=== PATIENT | female | born 1935 | race Caucasian/White ===

== ENCOUNTER 2020-05-24 04:07 | Inpatient (IN) | payer OTHER ==
[~2020-05-24] VITALS: Ht 170.2 cm; Wt 58.1 kg
[2020-05-24 04:13] VITALS: BP 132/58
[2020-05-24 04:35] LABS: ABSOLUTE NEUTROPHILS 3.5 thou/uL (1.4-8.2); BASOPHILS 0.3 % (0.0-2.0); EOSINOPHILS 1.8 % (0.0-3.0); HEMATOCRIT 26.5 % (37.0-47.0); HEMOGLOBIN 8.9 gm/dL (12.0-15.0); LYMPHOCYTES 24.2 % (24.0-44.0); MCH 32.4 pg (26.0-34.0); MCHC 33.4 g/dL (28.0-37.0); MCV 97.1 fL (80.0-100.0); MONOCYTES 9.7 % (1.0-8.0); PLATELET COUNT 126 thou/uL (150-400); RBC 2.73 mil/uL (4.20-5.00); RDW 14.8 % (10.5-14.5); WBC 5.4 thou/uL (4.0-11.0)
[2020-05-24 04:41] LABS: CALCIUM 8.8 mg/dL (8.5-10.1); CREATININE 1.7 mg/dL (0.6-1.0)
[2020-05-24 04:47] LABS: ALBUMIN 2.7 g/dL (3.4-5.0); TOTAL BILIRUBIN 0.6 mg/dL (0.2-1.0); TOTAL PROTEIN 5.4 g/dL (6.4-8.2)
[2020-05-24 04:49] LABS: URINE BILIRUBIN NEGATIVE (Negative); URINE BLOOD NEGATIVE (Negative); URINE CLARITY CLEAR; URINE COLOR YELLOW; URINE GLUCOSE-RANDOM* NEGATIVE (Negative); URINE KETONES NEGATIVE (Negative); URINE LEUKOCYTES-REFLEX NEGATIVE (Negative); URINE NITRITE-REFLEX NEGATIVE (Negative); URINE PROTEIN (DIPSTICK) NEGATIVE (Negative); URINE SPECIFIC GRAVITY 1.015 (1.005-1.035); URINE UROBILINOGEN 0.2 E.U./dl (0.2-1.0)
[2020-05-24 06:13] LABS: LARGE PLATELETS OCCASIONAL
[2020-05-24] MEDS ORDERED: COMBIGAN EYE DR10 ML OPHTHALMIC (06:34)
[2020-05-24] MEDS ORDERED: LATANOPROST 0.2.5 ML OPHTHALMIC (06:35)
[2020-05-24] MEDS ORDERED: TRANSDERM-SCOP1 EACH TOP (06:35)
[2020-05-24 16:15] VITALS: BP 127/54
[2020-05-24 18:35] VITALS: BP 125/57
[2020-05-24 21:56] VITALS: BP 134/63
[2020-05-25 04:31] LABS: HEMATOCRIT 28.2 % (37.0-47.0); HEMOGLOBIN 9.2 gm/dL (12.0-15.0); MCH 32.3 pg (26.0-34.0); MCHC 32.8 g/dL (28.0-37.0); MCV 98.3 fL (80.0-100.0); RBC 2.87 mil/uL (4.20-5.00); RDW 15.3 % (10.5-14.5); WBC 5.5 thou/uL (4.0-11.0)
[2020-05-25 04:53] LABS: CREATININE 1.2 mg/dL (0.6-1.0); MAGNESIUM 1.6 mg/dL (1.8-2.4); POTASSIUM 3.6 mmol/L (3.5-5.1)
[2020-05-25 05:53] VITALS: BP 135/70
[2020-05-25 07:27] VITALS: BP 137/57
[2020-05-25 22:04] VITALS: BP 141/85
[2020-05-26] MEDS ORDERED: OMEPRAZOLE 20 M20 M1 PO (05:49)
[2020-05-26] MEDS ORDERED: SIMVASTATIN40 MG PO (05:51)
[2020-05-26] MEDS ORDERED: BUSPIRONE HCL5 MG PO (05:54)
[2020-05-26] MEDS ORDERED: MELATONIN10 M1 PO (05:56)
[2020-05-26] MEDS ORDERED: FENOFIBRATE134 MG PO (06:06)
[2020-05-26] MEDS ORDERED: MULTIVITAMINS1 EACH (06:08)
[2020-05-26 07:36] VITALS: BP 149/58
--- NOTE | 2020-05-26 07:39 | EKG ---
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 05/26/20 0739 0424 0424 Tor Richardson MD, FACC /EPI
[2020-05-26 14:14] VITALS: BP 149/58
[2020-05-26] MEDS ORDERED: PEPCID20 MG PO (16:05)
[2020-05-26] MEDS ORDERED: ACETAMINOPHEN325 M1 PO (16:05)
[2020-05-26 17:47] VITALS: BP 121/61
== END 2020-05-26 18:20 | disposition home health service (06) | DRG 682 ==
LOC: ER 04:07 → 4W 05:42 → EROBS 05:42 → 4W 18:35 → EROBS 18:40 → 4W 19:02
PROVIDERS: Emergency Medicine; ADMIT Internal Medicine; ATTEND Internal Medicine
DX: N17.0 Acute kidney failure with tubular necrosis (principal); E43 Unspecified severe protein-calorie malnutrition; G93.41 Metabolic encephalopathy; F03.91 Unspecified dementia, unspecified severity, with behavioral disturbance; E86.0 Dehydration; N18.9 Chronic kidney disease, unspecified; E78.5 Hyperlipidemia, unspecified; D63.8 Anemia in other chronic diseases classified elsewhere; K21.9 Gastro-esophageal reflux disease without esophagitis; Z20.822 Contact with and (suspected) exposure to COVID-19; E16.2 Hypoglycemia, unspecified; Z88.0 Allergy status to penicillin; Z88.2 Allergy status to sulfonamides; Z79.899 Other long term (current) drug therapy
CPT/HCPCS: 10047

== ENCOUNTER 2020-07-22 07:06 | Emergency (ER) | payer OTHER ==
[~2020-07-22] VITALS: Ht 170.2 cm; Wt 61.2 kg
[~2020-07-22 07:06] MED LIST: ACETAMINOPHEN325 M1 PO; BUSPIRONE HCL5 MG PO; COMBIGAN EYE DR10 ML OPHTHALMIC; FENOFIBRATE134 MG PO; LATANOPROST 0.2.5 ML OPHTHALMIC; MELATONIN10 M1 PO; MULTIVITAMINS1 EACH; OMEPRAZOLE 20 M20 M1 PO; PEPCID20 MG PO; SIMVASTATIN40 MG PO; TRANSDERM-SCOP1 EACH TOP
[2020-07-22] MEDS ORDERED: FUROSEMIDE 20 M20 M1 PO (07:15)
[2020-07-22] MEDS ORDERED: POTASSIUM CHLO10 ME1 PO (07:16)
[2020-07-22 09:17] VITALS: BP 130/59
== END 2020-07-22 09:18 | disposition short-term general hospital (02) ==
LOC: ER 07:06
DX: S00.83XA Contusion of other part of head, initial encounter (principal); Z88.0 Allergy status to penicillin; Z88.2 Allergy status to sulfonamides; Z79.899 Other long term (current) drug therapy; W01.0XXA Fall on same level from slipping, tripping and stumbling without subsequent striking against object, initial encounter; Y93.89 Activity, other specified; Y92.89 Other specified places as the place of occurrence of the external cause; Y99.8 Other external cause status

== ENCOUNTER 2021-05-03 15:44 | Inpatient (IN) | payer OTHER ==
[~2021-05-03] VITALS: Ht 170.2 cm; Wt 63.5 kg
--- NOTE | ~2021-05-03 | EMS ---
[address] [address] EMS Patient Care Report Name: PAT VICENTE Room #: REG ASHKAN Bullock#: [id number] Admission: 05/03/21 Attend Phys: Discharge: Date of : 34 Report #: [id number] THIS REPORT FOR: //name// Report Transmitted: 05/03/2021 15:15 EMS Care Summary [place], [place]/[facility] Incident [id number] @ 05/03/2021 15:04 Incident Location [address] Patient PAT VICENTE Female, 85 Years 1935 Patient Address [address] [place] [address] Patient History Hypertension (HTN),Gastro-Esophageal Reflux Disease (GERD),Edema,Glaucoma, Patient Allergies Penicillin allergy,Sulfa, Patient Medications Hydroxyzine, Melatonin, Simvastatin, Furosemide, Omeprazole, Fenofibrate, Potassium, Chief Complaint mid back pain wrapping around to front Disposition Transported No Lights/[place] Dispatch Reason Chest Pain (Non-Traumatic) Transported To [facility] Narrative M36 dispatched on a chest pain. M36 arrived to long term to find staff directing PT to wrong hallway. PT found in room seated on edge of bed. PT [address] [address] EMS Patient Care Report Name: PAT VICENTE Room #: REG Ara#: [id number] Admission: 05/03/21 Attend Phys: Discharge: Date of : 34 Report #: [id number] stated mid back pain wrapping around to the front as chief complaint. PT stated additional complaints of dry unproductive cough and pain worse with deep breathes. NH stated PT had not eaten breakfast this morning. PT assisted to put on surgical mask. PT assisted to stand and pivot to stretcher. PT secured with seatbelts. PT stated "I need to get my booster." PT vitals monitored during transport. PT report given. PT advised of high volume status. PT assisted to stand and pivot to wheelchair in triage. PT care and belongings transferred to ER staff at [facility] without incident. M36 placed back in service. Initial Vitals @15:26P: 83,BP: 127/75,CO: 0,SpO2: 96, @15:23P: 84,R: 16,BP: 142/70,Pain: 7/10,GCS: 15,SpO2: 96,Revised Trauma: 12,MO Suspected: false @15:37P: 104,R: 18,Pain: 7/10,GCS: 15,SpO2: 96, Assessments @15:46MENTAL:Place Oriented,Event Oriented,Person Oriented,Time Oriented,SKIN:Pale,HEENT:LUNG SOUNDS:ABDOMEN:PELVIS//GI:EXTREMITIES:Left Leg: Edema,Right Leg: Edema,PULSE:Radial: 2+ Normal,NEURO: Impression Chest pain on breathing Procedures @15:16 ALS Assessment Response: UnchangedSucceeded Timeline 15:02,Call Received 15:02,Dispatch Notified 15:04,Dispatched 15:04,En Route 15:11,On Scene 15:14,At Patient 15:16,ALS Assessment,Response: UnchangedSucceeded, 15:23,BP: 142/70 M,PULSE: 84,RR: 16 R,SPO2: 96 Ox,ETCO2: ,BG: ,PAIN: 7,GCS: 15, 15:26,BP: 127/75 M,PULSE: 83,RR: R,SPO2: 96 Ox,ETCO2: ,BG: ,PAIN: ,GCS: , 15:35,Depart Scene 15:37,BP: / M,PULSE: 104,RR: 18 R,SPO2: 96 Ox,ETCO2: ,BG: ,PAIN: 7,GCS: 15, 15:38,At Destination 15:57,Call Closed Disclaimer v1.1 Copyright 2021 [employer] [address] [address] EMS Patient Care Report Name: PAT VICENTE Room #: REG [facility]#: [id number] Admission: 05/03/21 Attend Phys: Discharge: Date of : 34 Report #: [id number] This EMS Care Summary contains data elements from the applicable legal record (which may be displayed differently). It is designed to provide pertinent information for the following purposes: continuity of care, clinical quality, and state data reporting. The complete legal record is available to ED staff and administrators of the receiving hospital in [facility]'s Patient Tracker. All data is provided "as is."
[2021-05-03 15:44] VITALS: BP 140/59
[~2021-05-03 15:44] MED LIST changes: +FUROSEMIDE 20 M20 M1 PO; +POTASSIUM CHLO10 ME1 PO
[2021-05-03 17:02] LABS: HEMATOCRIT 27.2 % (37.0-47.0); MCH 30.1 pg (26.0-34.0); MCHC 33.1 g/dL (28.0-37.0); MCV 90.9 fL (80.0-100.0); PLATELET COUNT 454 thou/uL (150-400); RDW 13.9 % (10.5-14.5); WBC 25.5 thou/uL (4.0-11.0)
[2021-05-03 17:24] LABS: CALCIUM 8.7 mg/dL (8.5-10.1); CREATININE 2.1 mg/dL (0.6-1.0)
[2021-05-03 17:30] LABS: POTASSIUM 2.7 mmol/L (3.5-5.1)
[2021-05-03 17:34] LABS: ABSOLUTE NEUTROPHILS 23.5 thou/uL (1.4-8.2)
[2021-05-03 17:47] LABS: URINE BLOOD NEGATIVE (Negative); URINE CLARITY CLEAR; URINE COLOR YELLOW; URINE GLUCOSE-RANDOM* NEGATIVE (Negative); URINE KETONES TRACE (Negative); URINE NITRITE-REFLEX NEGATIVE (Negative); URINE PROTEIN (DIPSTICK) 2+ (Negative); URINE SPECIFIC GRAVITY >= 1.030 (1.005-1.035)
[2021-05-03 17:50] LABS: ICTOTEST (BILI CONFIRMATORY) Negative (Negative); URINE BILIRUBIN NEGATIVE (Negative); URINE LEUKOCYTES-REFLEX 1+ (Negative)
[2021-05-03 17:54] LABS: SQUAMOUS 0-3 Few /LPF (0-3); URINE RBC 1-2 Rare /HPF (NONE SEEN)
[2021-05-03 17:55] LABS: BACTERIA-REFLEX >30 Many /HPF (None Seen); CRYSTALS None Seen /LPF (None Seen); HYALINE CASTS 0-3 Few /LPF (None Seen)
[2021-05-04 05:21] VITALS: BP 151/50
[2021-05-04 06:05] LABS: HEMATOCRIT 23.9 % (37.0-47.0); HEMOGLOBIN 7.8 gm/dL (12.0-15.0); MCH 30.3 pg (26.0-34.0); MCHC 32.6 g/dL (28.0-37.0); RBC 2.57 mil/uL (4.20-5.00); RDW 14.1 % (10.5-14.5); WBC 21.7 thou/uL (4.0-11.0)
[2021-05-04 06:09] LABS: CALCIUM 7.7 mg/dL (8.5-10.1); CREATININE 1.8 mg/dL (0.6-1.0)
[2021-05-04 06:35] LABS: POTASSIUM 2.9 mmol/L (3.5-5.1)
--- NOTE | 2021-05-04 07:39 | EKG ---
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: DEWEY LERMA : 1935 Requested By: Don Foster Order Number: [id number] MD: Fernandez Lyle Measurements Intervals [place] Rate: 89 P: 23 VA: 135 QRS: -17 QRSD: 96 T: 161 QT: 361 QTc: 440 Interpretive Statements Sinus rhythm Atrial premature complex LVH with secondary repolarization abnormality Compared to ECG 05/24/2020 04:24:10 Atrial premature complex(es) now present Left ventricular hypertrophy now present Early repolarization now present ST (T wave) deviation no longer present Electronically Signed On 05-04-2021 7:39:44 FOXING CLOSER by Fernandez Lyle [email or web address] <ELECTRONICALLY SIGNED> By: Fernandez Lyle MD, FAC 05/04/21 0739 1616 1616 Fernandez Lyle MD, [facility] /EPI
[2021-05-04 08:22] VITALS: BP 144/58
[2021-05-04 09:11] VITALS: BP 144/58
[2021-05-04 09:30] VITALS: BP 124/66
[2021-05-04 15:40] LABS: ABSOLUTE RETIC COUNT 0.0312 10^6/uL; OBSERVED RETIC COUNT 1.17 % (0.6-2.6)
[2021-05-04 15:43] LABS: % SATURATION 18 % (20-39); IRON 26 ug/dL (50-170); TIBC 141 ug/dL (250-450)
[2021-05-04 16:00] VITALS: BP 132/50
--- NOTE | 2021-05-04 16:49 | NUR ---
CHART REVIEWED AND CASE DISCUSSED WITH CARE TEAM. CM MET WITH PT THIS DAY. CM ROLE INTRODUCED. PT REPORTS SHE LIVES IN [facility] BY HERSELF. SHE REPORTS HAVING HELP WITH MEALS AND DRESSING IF NEEDED. SHE REPORTS NOT HAVING A PCP. CM WILL CALL SON FOR FURTHER [employer] AND ADLS. AWAITING THERAPY RECOMMENDATIONS FOR DC. CM WILL CONTINUE TO FOLLOW.
--- NOTE | 2021-05-04 18:28 | NUR ---
Received pt to room 211 from ER approx. 0945. Pt is A&O x3, on RA, SR on the monitor. Pt has hx of dementia & slightly forgetful. Pt oriented to unit & room. Appropriate wristbands placed on pt & orders carried out. Stool collected for occult test per GI. Pt daughter at bedside & able to help w/ most of questions. Pt son (primary) & daughter share DPOA. High fall precautions in place. Frequent rounding in place.
[2021-05-04 20:15] VITALS: BP 147/56
[2021-05-05 02:33] LABS: HEMATOCRIT 24.8 % (37.0-47.0); HEMOGLOBIN 8.1 gm/dL (12.0-15.0); MCH 30.1 pg (26.0-34.0); MCHC 32.5 g/dL (28.0-37.0); MCV 92.6 fL (80.0-100.0); RBC 2.68 mil/uL (4.20-5.00); RDW 14.4 % (10.5-14.5); WBC 16.9 thou/uL (4.0-11.0)
[2021-05-05 04:45] VITALS: BP 145/78
--- NOTE | 2021-05-05 08:01 | HC ---
[facility] [place] [address] CONSULTATION Name: PAT VICENTE Starla Room #: 211-P [facility] IN .R.#: [id number] Admission: 05/03/21 Attend Phys: Ramiro Vela MD Discharge: Date of : 34 Report #: [id number] THIS REPORT FOR: cc: Daryn Hodgson Ryan D. DO Barry, Joseph W. MD ~ DATE OF SERVICE: 05/04/2021 INFECTIOUS DISEASE CONSULTATION ATTENDING PHYSICIAN: Dr. Vela. REASON FOR EVALUATION: Pneumonitis, complicated urinary tract infection. HISTORY OF PRESENT ILLNESS: Chart reviewed. The patient examined. This is an 85-year-old woman with history of dementia, also orthostatic hypotension, who apparently presented from the nursing facility to the Emergency Room with generalized weakness, left pleuritic type chest pain. On the day of presentation, she was 3-4 days into her illness. She notes some mild cough that is nonproductive. It is not clear if she had fevers. Apparently, she was having poor p.o. intake. She was evaluated. Coronavirus testing was negative. Chest x-ray noted left lower lobe pneumonitis. CT abdomen and pelvis again confirmed that, mild rectal wall thickening as well. Shows white count was elevated at 25.5. Urinalysis did show moderate pyuria and marked bacteriuria. Lactic acid was 1.1. Blood cultures collected at time of admission are sterile thus far. She has been relatively hemodynamically stable and has not been febrile. Cultures ____ are in progress. She was empirically started on antibiotics with azithromycin and ceftriaxone. This was switched to cefepime and vancomycin. She feels marginally better than admission. ALLERGIES: PENICILLIN, SULFA. CURRENT MEDICATIONS: Include pantoprazole, vancomycin, tramadol, heparin subcutaneously, cefepime, acetaminophen. PAST MEDICAL HISTORY: As described above, dementia, osteoarthritis, hypertension. SOCIAL HISTORY: Former smoker, no ethanol, no illicit drug use. FAMILY HISTORY: Noncontributory. REVIEW OF SYSTEMS: Otherwise, unremarkable. Denies any significant GI related complaints. PHYSICAL EXAMINATION: [facility] [address] [place] [address] CONSULTATION Name: JULESPAT Starla Room #: 211-P [facility] IN ..#: [id number] Admission: 05/03/21 Attend Phys: Ramiro Vela MD Discharge: Date of : 34 Report #: [id number] GENERAL: She is chronically ill-appearing, undernourished. She is pale, mildly encephalopathic. VITAL SIGNS: Temperature 97, pulse 90, respirations 18, blood pressure 132/50. SKIN: Warm, dry. HEENT: Normocephalic. Extraocular muscles intact. NECK: Supple. LUNGS: Left-sided basilar coarse breath sounds, diminished overall, particularly on the left. HEART: Regular, soft systolic murmur. ABDOMEN: Mildly distended, somewhat firm. No peritoneal signs. She is mildly tender on the left upper quadrant. GENITOURINARY AND RECTAL: Deferred. LABORATORY DATA: Most recent CBC: White count 21.7, H and H 7.8 and 23.9, platelets of 403. Retic count of 0.0312. Blood cultures sterile thus far. Electrolytes: Sodium 141, potassium 2.9, chloride 106, bicarbonate is 23, anion gap of 12, BUN and creatinine 38 and 1.8. Estimated GFR 27. Coronavirus testing was negative both ____ and PCR. Lactic acid 1.1. Urinalysis, 16-25 white cells, greater than [address] of the pelvis noted above. ASSESSMENT AND PLAN: Pneumonitis with evidence of left basilar consolidation and pleuritic type chest pain, also complicated urinary tract infection, likely on the basis of dehydration with stasis of the urine, probably had early sepsis. We will continue empiric broad-spectrum therapy including vancomycin and cefepime. She seemingly has improved over the course of last 24 hours. She still remains quite tenuous at this point. Continue to monitor expectantly. We will add incentive spirometry, optimize nutritional status. Continue supportive care as required. <ELECTRONICALLY SIGNED> By: Johnny Mendoza MD 05/05/21 0801 1649 31 Johnny Mendoza MD /nt
[2021-05-05 09:20] VITALS: BP 136/63
--- NOTE | 2021-05-05 09:32 | NUR ---
Assumed care of pt this AM. Pt is A&O x4, on RA, SR on the monitor. Pt states that she didn't sleep well last night. Pt w/ + occult stool; this nurse notified GI. Pt stating that her rt shoulder area hurts this AM. High fall precautions in place. Frequent rounding.
[2021-05-05 12:59] VITALS: BP 137/53
--- NOTE | 2021-05-05 15:21 | NUR ---
CONSULT [id number] WAS COMPLETED BY THIS STATOR TESTER.
--- NOTE | 2021-05-05 16:12 | NUR ---
CM REVIEWED PT CHART FOR DC PLANNING. OT CONTINUES TO ASSESS FOR DC PLANNING WITH NO DC RECOMMENDATIONS AVAILABLE AT THIS TIME. STILL AWAITING PT RECOMMENDATIONS WELL. CM WILL CONTINUE TO FOLLOW AND ASSESS FOR DC NEEDS AND ARRANGE WHEN RECOMMENDATIONS ARE MADE.
[2021-05-05 16:47] VITALS: BP 142/67
[2021-05-05 19:56] VITALS: BP 150/75
[2021-05-06 02:21] LABS: HEMATOCRIT 24.7 % (37.0-47.0); MCH 29.9 pg (26.0-34.0); MCHC 32.3 g/dL (28.0-37.0); MCV 92.8 fL (80.0-100.0); RBC 2.67 mil/uL (4.20-5.00); RDW 14.6 % (10.5-14.5); WBC 14.1 thou/uL (4.0-11.0)
[2021-05-06 03:55] VITALS: BP 158/72
[2021-05-06 07:27] VITALS: BP 161/85
[2021-05-06 11:54] VITALS: BP 149/70
--- NOTE | 2021-05-06 14:58 | NUR ---
CM CONTINUE WITH DC PLANNING. MET WITH PT THIS DAY. FAMILY AT BEDSIDE. PT REMAINS AGREEABLE TO [facility] ON DC. CM SPOKE TO BENIGNO WHO REPORTS NO BED IS AVAILABLE TODAY BUT WILL SHOOT TO HAVE ONE AVAILABLE TOMORROW. CLARIFIED PT NOT COVID POSITIVE ON ADMISSION. FAXED RECENT COVID NEGATIVES AND APPOPRIATE SUPPORTIVE DOCUMENTATION. 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 CM FOLLOWING.
[2021-05-06 16:03] VITALS: BP 151/75
[2021-05-06 20:17] VITALS: BP 155/73
[2021-05-07 03:29] LABS: ALBUMIN 1.5 g/dL (3.4-5.0); CALCIUM 8.4 mg/dL (8.5-10.1); CREATININE 1.4 mg/dL (0.6-1.0); POTASSIUM 5.4 mmol/L (3.5-5.1); TOTAL BILIRUBIN 0.4 mg/dL (0.2-1.0); TOTAL PROTEIN 4.7 g/dL (6.4-8.2)
[2021-05-07 04:14] VITALS: BP 169/99
--- NOTE | 2021-05-07 04:41 | NUR ---
ASSUMED PT CARE AT 1900, ALERT AND ORIENTEDX2-3, TRAMADOL GIVEN FOR BACK PAIN WITH RELIEF, ASSESSMETS CHARTED, SR ON TELE, REMAINS ON RA, O2SATS STABLE, NO ACUTE DISTREESS NOTED, WILL CONTINUE TO MONITOR PER POC
[2021-05-07 07:25] VITALS: BP 162/87
[2021-05-07] MEDS ORDERED: KLOR-CON M2020 MEQ PO (09:05)
[2021-05-07] MEDS ORDERED: PROTONIX40 M2 PO (09:05)
[2021-05-07] MEDS ORDERED: CEFUROXIME500 MG PO (09:07)
--- NOTE | 2021-05-07 10:59 | NUR ---
CM SPOKE TO BENIGNO JEFFERSON FOR [facility]. CAN ACCEPT SNF BED FOR PT THIS DAY. DC ORDERS FAXED AND RECIEVED. DAUGHTER AT BEDSIDE AND AWARE. RAPID COVID RESULTS CAME BACK POSITIVE. THEREFORE, PT WILL NOT DC AT THIS TIME. CM FOLLOWING.
[2021-05-07 11:00] VITALS: BP 162/69
--- NOTE | 2021-05-07 18:20 | NUR ---
Patient is alert to self. She is foretful of her limitations but she is not demonstrated any impulsive behavior since this nurse assumed her care at 1650. Patient is MS- Tele and has been SR. Patient has a purewick in place. She has a reddened bottom and skin protectant was applied. Patient gets up x1-2 assist with transferring. Patient is on enhanced precautions. Patient is on room air. Patient has an IV in her Left forearm that is currently infusing with D5 1/2 NS at 75 mL's/ hr. Patient will continue to be monitored.
[2021-05-07 19:30] VITALS: BP 177/85
[2021-05-08 03:10] VITALS: BP 163/99
[2021-05-08 04:55] VITALS: BP 147/71
[2021-05-08 05:33] LABS: HEMATOCRIT 24.6 % (37.0-47.0); HEMOGLOBIN 8.1 gm/dL (12.0-15.0); MCH 30.5 pg (26.0-34.0); MCHC 32.7 g/dL (28.0-37.0); MCV 93.4 fL (80.0-100.0); PLATELET COUNT 288 thou/uL (150-400); RBC 2.64 mil/uL (4.20-5.00); RDW 14.6 % (10.5-14.5); WBC 12.5 thou/uL (4.0-11.0)
[2021-05-08 05:48] LABS: ALBUMIN 1.4 g/dL (3.4-5.0); CALCIUM 8.6 mg/dL (8.5-10.1); CREATININE 1.4 mg/dL (0.6-1.0); POTASSIUM 4.7 mmol/L (3.5-5.1); TOTAL BILIRUBIN 0.5 mg/dL (0.2-1.0); TOTAL PROTEIN 5.2 g/dL (6.4-8.2)
--- NOTE | 2021-05-08 06:55 | NUR ---
PT MAKING POOR PROGRESS TOWARDS GOALS. NOTED WORSENING OF CHEST XRAY PER REPORT 05/06/21. PT WITH ROOM AIR O2 SAT OF 84-85%. O2 AT 3L PER NC RAISED O2 SAT TO 92-94%. NOTED WEAK COUGH, SLIGHTLY WET SOUNDING BUT NO PRODUCTION OBSERVED. THIS AM PT C/O "I CAN'T BREATH." O2 SAT 84-85%. O2 INCREASED TO 6L WITH VERY LITTLE IMPROVEMENT. LUNGS COARSE T/O THE RIGHT SIDE, VERY DIMINISHED ON LEFT SIDE. NO CHANGE IN COUGH. PT ALSO C/O CHEST DISCOMFORT ALONG WITH BACK PAIN. ORDERS RECEIVED FROM IN FILE OPERATOR. X1 PAIN MED GIVEN, RT PROVIDED BREATHING TREATMENT. PT IMPROVED WITH THESE MEASURE WITH O2 SAT REMAINING IN MID 90'S. PT HAS DEMENTIA DX BUT WAS ABLE TO STATE THAT SHE FEELS SHE IS BREATHING EASIER AFTER THE INTERVENTIONS. CXR THIS AM NOTES FURTHER WORSENING. LUNGS REMAIN COARSE ON RIGHT SIDE, DIMINISHED ON LEFT.
[2021-05-08 07:52] VITALS: BP 142/65
[2021-05-08 09:43] LABS: ABSOLUTE NEUTROPHILS 11.3 thou/uL (1.4-8.2); PLATELET ESTIMATE NORMAL
--- NOTE | 2021-05-08 14:44 | NUR ---
SW reviewed chart and spoke with nursing and attending physician. Pt was transferred to from yesterday after having COVID positive test. Pt placed in Enhanced Isolation. Pt is from [facility]. Pt was ready to discharge to [facility] yesterday, but had positive COVID test. Pt is afebrile and on 6L of O2. Pt has been started on Remdesivir. No weekend discharge planned. JESSE updated [facility] [facility] liaison. Pt will need to be in isolation for 10 days prior to consideration for admitting to [facility]. JESSE is following to assist as needed with discharge planning.
[2021-05-08 16:36] VITALS: BP 152/78
--- NOTE | 2021-05-08 18:29 | NUR ---
PATIENT IS ALERT TO SELF AND IS OCCASIONALLY AWARE OF SITUATION. PATIENT IS FORGETFUL OF LIMITATIONS. PAITENT IS NOT IMPULSIVE. PATIENT IS ON ENHANCED PERECAUTIONS. PATIENT IS ON 4L OF OXYGEN. PATIENT HAS COARSE CRACKLES IN THE BASES OF HER LUNGS. PATIENT WAS CC/ TELE AT THE BEGINNING AND THRU MOST OF THIS SHIFT. TELE WAS DISCONTINUED BY PROVIDER. WHILE ON TELE PATIENT WAS RUNNING SR WITH A BUNDLE BRANCH BLOCK. PATIENT HAS A PURE WICK IN PLACE. PATIENT HAS GENERALIZED BRUISING ON HER BODY. PATIENT HAS A REDDENED BOTTOM AND HAS BEEN TURNED Q2 HOURS ORDERED. PATIENT WAS GIVEN MOUTH SWABS TO HELP KEEP MOUTH MOIST THIS SHIFT SHE KEPT REPORTING THAT HER MOUTH WAS DRY. PAINET HAS AN IV IN HER LEFT FOREARM THAT IS PATENT AND SALINE LOCKED. PATIENT WILL CONTINUE TO BE MONITORED.
[2021-05-08 19:29] VITALS: BP 155/78
--- NOTE | 2021-05-08 22:32 | NUR ---
PT RESTING IN BED. SOA WITH TALKING, CRACKLES IN LUNGS. O2 PER NC. PRN FOR BACK PAIN. PURWICK INTACT. BED ALARM ON. PT ALERT TO SELF.
[2021-05-09 05:04] LABS: ABSOLUTE NEUTROPHILS 6.3 thou/uL (1.4-8.2); BASOPHILS 0.1 % (0.0-2.0); HEMATOCRIT 24.6 % (37.0-47.0); HEMOGLOBIN 8.3 gm/dL (12.0-15.0); LYMPHOCYTES 16.2 % (24.0-44.0); MCH 31.4 pg (26.0-34.0); MCHC 33.6 g/dL (28.0-37.0); MCV 93.4 fL (80.0-100.0); MONOCYTES 7.7 % (1.0-8.0); PLATELET COUNT 249 thou/uL (150-400); RBC 2.64 mil/uL (4.20-5.00); RDW 14.6 % (10.5-14.5); WBC 8.3 thou/uL (4.0-11.0)
--- NOTE | 2021-05-09 05:32 | NUR ---
PT GROANING, WHEEZING SOA WITH CONVERSATION, C/O BACK DISCOMFORT. PRN PROVIDED.
[2021-05-09 05:39] LABS: ALBUMIN 1.4 g/dL (3.4-5.0); CALCIUM 8.7 mg/dL (8.5-10.1); CREATININE 1.5 mg/dL (0.6-1.0); POTASSIUM 4.7 mmol/L (3.5-5.1); TOTAL BILIRUBIN 0.4 mg/dL (0.2-1.0); TOTAL PROTEIN 5.3 g/dL (6.4-8.2)
[2021-05-09 07:40] VITALS: BP 148/86
[2021-05-09 15:47] VITALS: BP 140/74
[2021-05-09 19:43] VITALS: BP 175/80
--- NOTE | 2021-05-09 21:40 | NUR ---
PT RESTING IN BED, WATCHING TV. ALERT TO SELF, TALKING, SOFT SPOKEN, MUMBLED SPEECH. O2 PER NC COMFORT. LUNGS CRACKLES. PURWICK INTACT. PT ASSISTED WITH SNACK, PT REQUESTING MULTIPLE BLANKETS. DUSKY SKIN TONE. BED ALARM ON. WILL HAVE DAY NURSE F/U WITH COMFORT CARE ORDER THAT IS NOTED IN DR NOTES.
[2021-05-10 04:40] VITALS: BP 159/75
[2021-05-10 07:02] LABS: ABSOLUTE NEUTROPHILS 9.1 thou/uL (1.4-8.2); BASOPHILS 0.1 % (0.0-2.0); EOSINOPHILS 1.7 % (0.0-3.0); HEMATOCRIT 24.5 % (37.0-47.0); HEMOGLOBIN 8.1 gm/dL (12.0-15.0); MCH 30.6 pg (26.0-34.0); MCV 92.8 fL (80.0-100.0); MONOCYTES 5.8 % (1.0-8.0); PLATELET COUNT 256 thou/uL (150-400); POLYS 77.4 % (36.0-66.0); RBC 2.64 mil/uL (4.20-5.00); RDW 14.8 % (10.5-14.5); WBC 11.8 thou/uL (4.0-11.0)
[2021-05-10 07:19] LABS: ALBUMIN 1.4 g/dL (3.4-5.0); CALCIUM 8.8 mg/dL (8.5-10.1); CREATININE 1.4 mg/dL (0.6-1.0); POTASSIUM 4.3 mmol/L (3.5-5.1); TOTAL BILIRUBIN 0.3 mg/dL (0.2-1.0); TOTAL PROTEIN 5.3 g/dL (6.4-8.2)
[2021-05-10 07:44] VITALS: BP 184/88
--- NOTE | 2021-05-10 17:40 | NUR ---
Patient is alert and oriented to self this shift. She appears to be confused. Patient is medsurge status. Patient is on 2L of oxygen via nasal canula. Patient is achs accuchecks. Patients blood glucose level has been low twice this shift and it was treated per protocol successfully. Patient has little to no appetitie this shift and fares better with the ensure drinks. Patient has a purewick in place. Patient has no skin issues to report at this time. Patient has an IV in her right forearm that is saline locked and patent. Patient will continue to be monitored.
--- NOTE | 2021-05-10 18:17 | NUR ---
patient transfer fom [phone] to [phone] at 1800. Axox1, on 2 liter of oxygen. no pain. resting comfortably in bed. call light within reach.
[2021-05-10 19:40] VITALS: BP 142/60
--- NOTE | 2021-05-11 03:54 | NUR ---
ASSUMED CARE OF PT AT 1900, BEDSIDE RPEORT RECIEVED ARON ASSESSMENT COMPLETE. NO INSULIN GIVEN D/T NO INDICATION. SL MORPHINE GIVEN FOR DISCOMFORT/AIR HUNGER. PT INCONTINENT OF BOWEL AND BLADDER AND YELLS OUT WHEN CHANGED. LINENS CHANGED. BARRIER CREAM TO COCCXY. Q2 HOUR REPOSITIONING FOR COMFORT. MOUTH SWABS GIVEN D/T DRY MOUTH. HOURLY ROUNDING CONTINUING, CALL LIGHT IN REACH
[2021-05-11 06:53] LABS: BASOPHILS 0.4 % (0.0-2.0); EOSINOPHILS 2.8 % (0.0-3.0); HEMOGLOBIN 8.3 gm/dL (12.0-15.0); LYMPHOCYTES 13.6 % (24.0-44.0); MCH 30.5 pg (26.0-34.0); MCHC 33.1 g/dL (28.0-37.0); MCV 92.2 fL (80.0-100.0); MONOCYTES 6.5 % (1.0-8.0); PLATELET COUNT 224 thou/uL (150-400); POLYS 76.7 % (36.0-66.0); RBC 2.71 mil/uL (4.20-5.00); WBC 9.1 thou/uL (4.0-11.0)
[2021-05-11 07:11] LABS: ALBUMIN 1.5 g/dL (3.4-5.0); CALCIUM 8.7 mg/dL (8.5-10.1); CREATININE 1.4 mg/dL (0.6-1.0); POTASSIUM 4.3 mmol/L (3.5-5.1); TOTAL BILIRUBIN 0.5 mg/dL (0.2-1.0); TOTAL PROTEIN 5.4 g/dL (6.4-8.2)
[2021-05-11 07:51] VITALS: BP 180/72
[2021-05-11 13:39] VITALS: BP 180/72
--- NOTE | 2021-05-11 15:00 | NUR ---
CM FOLLOWED UP WITH PT'S SON DAXA POPE THIS AFTERNOON. PT HAD BEEN TRANSITIONED TO CONFORT CARE THIS WEEKEND. FIDELINA SPOKE WITH BENIGNO SOW LIAISON AND SHE INDICATED THAT SHE HAD SPOKEN WITH JONNY DIRECTOR AT [facility] AND HE INDICATED THAT THEY COULD PT PT BACK ONTO HOSPICE SERVICES WITH [facility] SERVICES AT HER [place] APARTMENT SOON TOMORROW. CM CALLED AND NOTIFIED SON OF THIS. HE IS GOING TO REACH OUT TO FRANKO FULLER WITH PERSONALISED LIVING SERVICES AT [place] AND HIS SISTER AND FOLLOW UP WITH FIDELINA. CM FOLLOWING REGARDING DC PLANNING.
[2021-05-11 15:52] VITALS: BP 165/82
--- NOTE | 2021-05-11 17:48 | NUR ---
RESUMMED CARE; PATIENT IN BED RESTING COMFORTABLY; A&O*1(SELF) WITH INTERMITTENT DISORIENTATION*4; IV IN THE LEFT FOREARM-S.L; PATIENT HYPERTENSIVE THROUGHOUT THE SHIFT, PATIENT VERBALIZES SOME DISCOMFORT, MEDICATIONS GIVEN PER MAR; PATIENT IS ON 2L N.C FOR COMFORT; COMFORT CARES ARE IN PLACE; PATIENT INCONTIENT OF B&B; Q2 TURNS WITH BARRIER CREAM APPLIED TO BOTTOM FOR REDDNESS; PATIENT DENIED SOB-CP WHEN ASKED ABOUT ANY CONCERNS STATES "MY MOUTH IS JUST SO DRY." CHAPSTICK AND WATER GIVE; DIET CHANGED PER ; FALL PRECAUTIONS AND ENHANCED PRECATIONS ARE IN PLACE;
[2021-05-11 19:26] VITALS: BP 165/77
--- NOTE | 2021-05-12 03:38 | NUR ---
ASSUMED CARE OF PT AT 1915. REPORT RECIEVED. AORN ASSESSMETN COMPLETE. NOTIFIED DELMY SHELTON OF INCREASED BP, NO NEW ORDERS AT THIS TIME. PT INCONTINENT OF BOWEL AND BLADDER, CHANGED PT, BARRIER CREAM TO GROIN AND COCCYX, LINEN CHANGED. EYE GTTS APPLIED. WAS ABLE TO GET PT TO EAT HALF AN APPLESAUCE C CRUSHED PAIN MED, FOR BLE AND COCCYX. Q2 HOUR REPOSITIONING. HOURLY ROUNDING CONTINUING. MOUTH MOSTRIZER APPLIED MULTIPLE TIMES. ALL NEEDS MET, CALL LIGHT IN REACH
[2021-05-12 06:32] LABS: ALBUMIN 1.3 g/dL (3.4-5.0); CALCIUM 8.6 mg/dL (8.5-10.1); CREATININE 1.2 mg/dL (0.6-1.0); POTASSIUM 4.2 mmol/L (3.5-5.1); TOTAL BILIRUBIN 0.5 mg/dL (0.2-1.0); TOTAL PROTEIN 5.2 g/dL (6.4-8.2)
[2021-05-12 07:26] VITALS: BP 148/74
--- NOTE | 2021-05-12 09:49 | NUR ---
PATIENT COMFORTABLE RESTING IN BED. NO COMPLAINTS OR CONCERS AT THIS TIME. WAS DRINKING ENSURE. WILL CONTINUE TO MONITOR.
[2021-05-12 10:52] VITALS: BP 148/74
[2021-05-12 11:13] VITALS: BP 148/74
--- NOTE | 2021-05-12 11:49 | NUR ---
[facility] INDICATED THAT THEY ARE ABLE TO ACCEPT PT ONTO SERVICES. CM NOTIFIED HOSPITALIST AND HE INDICATED THAT PT WOULD BE MEDICALLY STABLE TO DC THIS DAY. CM REACHED BACK OUT TO HOSPICE AND THEY HAD SPOKEN WITH PT'S SON. THEY INDICATED THAT PT'S SON IS HAVING PT'S EXISTING BED REMOVED FROM HER APARTMENT THIS EVENING. [facility] ASKED IF WE COULD SCHEDULE DC FOR TOMORROW WHICH WOULD ALLOW THEM TO HAVE PRIOR BED REMOVED AND ALL NEEDED DME IN PLACE UPON PT'S ARRIVAL HOME AND HER ADMISSION TO SERVICES. CM ASKED HOSPITALIST AND HE IS AGREEABLE. CM TO CONFIRM WITH SON. CM TO ARRANGE [facility] TRANSPORT FOR DC BACK TO [facility] WITH [facility] SERVICES AND [facility] TOMORROW Tuesday05/13/21.
[2021-05-12 12:00] VITALS: BP 148/73
[2021-05-12 17:00] VITALS: BP 150/61
[2021-05-12 19:38] VITALS: BP 143/60
[2021-05-13 04:10] VITALS: BP 168/55
--- NOTE | 2021-05-13 04:57 | NUR ---
ASSUMED CARE OF PT AKILAH 1900. COMFORT CARE ORDERED. HOURLY ROUNDING PERFORMED. PT TURNED AT HER DISCRESSION. PT DENIES PAIN. INTERMITTENT SHORTNESS OF AIR PRESENT BUT PT DENIES ANY OTHER CONCERNS OR DISCOMFORT
[2021-05-13 07:35] VITALS: BP 168/80
--- NOTE | 2021-05-13 12:51 | NUR ---
PT TO DC TO [facility] WITH [facility] AND INCREASED PERSONALIZED LIVING SERVICES THIS DAY. CHART COPY MADE. ORDERS FAXED. OUTSIDE HOSPITAL DNR FORM COMPLETED. CM ARRANGED [facility] PICKUP AROUND 1300. CM NOTIFIED PT'S SON DEWEY AND HORACIO WITH [facility]. ALL ARE AWARE AND AGREEABLE. NO OTHER CM INTERVENTION INDICATED. CASE CLOSED.
== END 2021-05-13 16:34 | disposition hospice, home (50) | DRG 871 ==
LOC: ER 15:44 → 2N 17:57 → EROBS 17:57 → 2N 05-04 09:09 → 3W 05-07 16:44 → 4W 05-10 18:12
PROVIDERS: Emergency Medicine; Nurse Practitioner; Nurse Practitioner Family; Specialist; ADMIT Hospitalist; ATTEND Hospitalist
PROC: XW033E5 Introduction of Remdesivir Anti-infective into Peripheral Vein, Percutaneous Approach, New Technology Group 5 (ICD-10-PCS; principal; 2021-05-08)
DX: A41.89 Other specified sepsis (principal); E43 Unspecified severe protein-calorie malnutrition; U07.1 COVID-19; J12.82 Pneumonia due to coronavirus disease 2019; J96.01 Acute respiratory failure with hypoxia; N39.0 Urinary tract infection, site not specified; N17.9 Acute kidney failure, unspecified; E87.6 Hypokalemia; D64.9 Anemia, unspecified; F03.90 Unspecified dementia, unspecified severity, without behavioral disturbance, psychotic disturbance, mood disturbance, and anxiety; K21.9 Gastro-esophageal reflux disease without esophagitis; E78.5 Hyperlipidemia, unspecified; Z66 Do not resuscitate; K59.00 Constipation, unspecified; R53.81 Other malaise; R59.9 Enlarged lymph nodes, unspecified; E86.0 Dehydration; M19.90 Unspecified osteoarthritis, unspecified site; G47.00 Insomnia, unspecified; E87.5 Hyperkalemia; T50.3X5A Adverse effect of electrolytic, caloric and water-balance agents, initial encounter; Z88.0 Allergy status to penicillin; Z88.2 Allergy status to sulfonamides; Z87.891 Personal history of nicotine dependence; Y92.89 Other specified places as the place of occurrence of the external cause; Z51.5 Encounter for palliative care; Z79.899 Other long term (current) drug therapy
CPT/HCPCS: 10047; 10081; 10779